=== PATIENT | female | born 1990 | race American Indian/Alaskan Native ===

== ENCOUNTER 2022-07-17 18:15 | Emergency (ER) | payer SELFPAY ==
--- NOTE | 2022-07-17 18:25 | Emergency Department Report ---
ED CPR HPI - General Chief Complaint: Cardiac Arrest/CPR Stated Complaint: CA Time Seen by Provider: 07/17/22 18:23 Source: EMS Mode of arrival: Stretcher Limitations: Other - History of Present Illness Initial Comments: This is a 32-year-old female who was brought in by EMS as a cardiac arrest. Initial onset is believed to be at approximately 1730 hrs. while she was on a plane from [place] to her grandson. Has a history of end-stage renal disease, and reportedly missed her dialysis on Monday. According to EMS (only collateral information at this time) she started throwing up blood, and then collapsed, and was found to be apneic and without a pulse while on the plane. CPR was started immediately while on the plane which included chest compressions and BVM oxygenation. Once EMS arrived, they placed an eye gel in her airway, started on IV line, continued chest compressions with the Ramos, gave 1 amp of sodium bicarbonate and 3 rounds of epinephrine. In route, the patient's blood sugar was greater than 300. For the entirety of the time that the patient was under the care of EMS, she was in asystole. Upon arrival to the emergency department, here, CPR was continued. Patient was given another amp of sodium bicarb, 1 amp of calcium, 1 more round of epinephrine, and she was endotracheally intubated. As the patient was in cardiac arrest for greater then 50 minutes, resuscitation efforts were discontinued, and the patient was pronounced at 1820 p.m. ED Review of Systems ROS: Stated complaint: CA Other details as noted in HPI Comment: Unobtainable due to pts medical conditions (Cardiac arrest) Respiratory: other (Cardiopulmonary arrest) Cardiovascular: other (Cardiac arrest) Endocrine: other (Elevated blood sugar in route) Gastrointestinal: hematemesis ED Past Medical Hx - Past Medical History Hx Renal Disease: Yes (On dialysis) Additional medical history: End-stage renal disease ED Physical Exam - General Limitations: Physical Limitation, Other (Cardiac arrest) General appearance: other (Unresponsive) - Head Head exam: Present: atraumatic - Eye Pupils: Present: other (Pupils fixed and dilated) - ENT ENT exam: Present: mucous membranes moist, other (Copious frothy sputum) - Neck Neck exam: Present: normal inspection - Respiratory Respiratory exam: Present: rales (Rales auscultated bilaterally when bagged; I gel in place) - Cardiovascular Cardiovascular Exam: Present: other (Pulseless) - GI/Abdominal GI/Abdominal exam: Absent: distended - Back Exam Back exam: Present: other (No evidence of trauma) - Neurological Exam Neurological exam: Present: other (Unresponsive) - Psychiatric Psychiatric exam: Present: other (Unable to assess secondary to condition) - Skin Skin exam: Present: warm, cyanosis ED Course - Reevaluation(s) Reevaluation #1: 07/17/22 19:41 Patient's , Kem Pugh, was notified of the patient's , and was allowed to see her once he arrived to the hospital. - Intubation Time Out Performed: No Sedative: none Laryngoscope: Fred Size: 4 ET Tube Size: 7.5 Tube Secured Depth (cm): 122 Tube Secured Location: teeth Tube Placement Confirmation: visualized tube passing t, equal breath sounds bilat Patient Tolerated Procedure: no complications Intubation Complications: none ED Medical Decision Making - Medical Decision Making This is a 32-year-old female with end-stage renal disease who was brought in by EMS for cardiac arrest. Patient received a full ALS interventions prior to arrival, without return of spontaneous circulation. Upon arrival, patient was in asystolic arrest, was given several other medications, was intubated, but again did not have any return of spontaneous circulation. Patient was pulseless and did not have a blood pressure. Physical exam was impressive for copious clear vomitus and frothy blood-tinged sputum. These findings make the diagnosis of acute OH with acute pulmonary edema high on the differential causes of her cardiac arrest. Patient's resuscitation was discontinued, and the patient was pronounced at 1820 p.m. patient's was notified. Critical care attestation.: If time is entered above; I have spent that time in minutes in the direct care of this critically ill patient, excluding procedure time. ED Disposition Clinical Impression: Cardiac arrest Disposition: 20 Is pt being admited?: No Condition: Critical Time of Disposition: 18:20
== END 2022-07-17 21:20 ==
LOC: ED 18:15
DX: I46.9 Cardiac arrest, cause unspecified (principal)
CPT/HCPCS: 31500; 92950; 99285